=== PATIENT | male | born 1945 | race Caucasian/White ===

== ENCOUNTER → 2018-09-23 07:05 | Outpatient (CLI) | payer MEDICARE, OTHER, SELFPAY ==
--- NOTE | 2018-09-23 07:10 | CT_ITS ---
STUDY: LOW DOSE CT LUNG CANCER SCREENING REASON FOR EXAM: Male, 73 years old. 30 pack-year year history of smoking. The patient quit 10 years ago. RADIATION DOSAGE (If Supplied By Facility): CTDIvol = ( 4.02 ) mGy, DLP = ( 123.35 ) mGycm TECHNIQUE: No contrast was administered. Low dose technique was utilized (average mAS-38 and kVp 120). 1.25 mm axial source images with a slice interval of 1.25-mm were reconstructed in lung windows. 2.5 mm axial source images with a slice interval of 2.5-mm were reconstructed in lung windows. 5.0 mm axial source images with a slice interval of 5.0-mm were reconstructed in soft tissue windows. Nodule measured using lung windows on PACS and/or independent workstation with automated measurement of minimum and maximum diameter. Nodule measurement reported as average diameter rounded to the nearest whole number. Growth is defined as an increase ins size of greater than 1.5 mm. COMPARISON: Comparison is made with prior examination dated March 14, 2011. NODULES: No suspicious nodules seen. Aorta: Calcified plaques of the aortic arch. Coronary arteries: Coronary artery calcification. Heart: Unremarkable. Pulmonary artery: Mediastinal nodes: Small benign-appearing mediastinal lymph nodes. Other chest and abdominal findings: Moderate sized hiatal hernia. CT/Low Dose CT Lung Screening IMPRESSION: Lung-RADS category 2 - Continue annual screening with LDCT in 12 months. IMPORTANT NOTES FOR USE: ACR Lung-RADS Version 1.0 Assessment Categories Release Date: July 14, 2013 Category: Coded 0-4 bases on nodule(s) with highest degree of suspicion. Negative screen is defined as categories 1 and 2; a positive screen is defined as categories 3 and 4. Category 3 and 4A nodules that are unchanged on interval CT should be coded as category 2, and individuals returned to screening in 12 months. Category 4X: Category 3 or 4 nodules with additional imaging findings that increase the suspicion of lung cancer, such as spiculation, GGN that doubles in size in 1 year, enlarged lymph notes, etc. Category Modifiers: S (significant finding unrelated to lung cancer) and C (prior history of treated lung cancer) may be added to the 0-4 Lung-RADS Electronically Signed: Santiago Quan, at 9:38 EDT , Service support ,
== END ==
PROVIDERS: Family Provider Family Medicine; PCP Family Medicine; Referring Provider Internal Medicine Pulmonary Disease; Visit Provider Internal Medicine Pulmonary Disease
DX: Z12.2 Encounter for screening for malignant neoplasm of respiratory organs (principal); Z87.891 Personal history of nicotine dependence
CPT/HCPCS: G0297

== ENCOUNTER → 2019-05-06 06:46 | Outpatient (CLI) | payer MEDICARE, OTHER, SELFPAY ==
[2019-04-17 14:14] VITALS: BMI 32.2
--- NOTE | 2019-05-06 13:03 | STRESSREP_ITS ---
Stress Test Report Date: 05-06-2019 Procedure: Exercise tolerance test/imaging study Indications: Chest pain Consent: Per the patient Procedure: The patient exercised on a Kenji protocol for 6 minutes and 11 seconds completing Stage II and 11 seconds of Stage III achieving a peak heart rate of 125 bpm (85 % predicted maximal heart rate) with a peak blood pressure 192/94 mmHg and a peak MET capacity of 7 METs. The baseline ECG demonstrated normal sinus rhythm. The peak exercise ECG demonstrated no obvious ECG changes. There were no cardiac dysrhythmias pretest, during exercise, or recovery. The functional capacity was considered average. There was no complaint of chest discomfort during exercise or recovery. The examination was discontinued secondary to dyspnea. Impression: 1. Technically adequate (percent predicted maximal heart rate greater than 85%) exercise tolerance test 2. Peak exercise ECG with no obvious ECG changes 3. There were no cardiac dysrhythmias pretest, during exercise, or recovery 4. Nuclear images pending Myocardial perfusion imaging study: Technique: The patient was injected with 14.3 mCi of technetium 99m Cardiolite and subsequently rest SPECT Cardiolite nuclear imaging was obtained in the horizontal long, vertical long, and short axis views. The patient exercised on a Kenji protocol for 6 minutes and 11 seconds completing Stage II and 11 seconds of Stage III achieving a peak heart rate of 125 bpm (85 % predicted maximal heart rate) with a peak blood pressure 192/94 mmHg and a peak MET capacity of 7 METs. The patient was injected with 44.5 mCi of technetium 99m Cardiolite and subsequently stress SPECT Cardiolite nuclear imaging was obtained in the horizontal long, vertical long, and short axis views. A gated Cardiolite study at peak stress was obtained. Interpretation: Rest and stress SPECT Cardiolite nuclear imaging status post realignment, normalization, and attenuation correction, demonstrates the appearance of body motion during image acquisition and otherwise relative uniform tracer uptake. There is end systolic thickening and brightening. The gated Cardiolite study demonstrates myocardial thickening and inward wall motion. The reported LVEF is 79 %. Impression: 1. Rest and stress SPECT Cardiolite nuclear imaging demonstrate the appearance of body motion during image acquisition and otherwise relative uniform tracer uptake with no myocardial perfusion changes considered diagnostic for associated stress-induced myocardial ischemia. 2. The gated Cardiolite study reports an LVEF of 79 %. This note was generated with [employer] software. It may contain incorrect words, spelling, and punctuation that were not noted in checking the note before signing.
== END ==
PROVIDERS: PCP Family Medicine; Referring Provider Internal Medicine Cardiovascular Disease; Visit Provider Internal Medicine Cardiovascular Disease
DX: R07.9 Chest pain, unspecified (principal)
CPT/HCPCS: 78452; 93017; A9500; A4216

== ENCOUNTER → 2019-11-18 15:01 | Outpatient (CLI) | payer MEDICARE, OTHER, SELFPAY ==
[2019-07-22 08:28] VITALS: BMI 34.0
--- NOTE | 2019-11-18 15:04 | CT_ITS ---
STUDY: CT ABDOMEN AND PELVIS WITHOUT CONTRAST REASON FOR EXAM: Male, 74 years old. RT FLANK PAIN. Prior cholecystectomy. HTN and diabetes controlled RADIATION DOSAGE (If Supplied By Facility): CTDIvol = ( 13.49 ) mGy, DLP = ( 700.88 ) mGycm TECHNIQUE: Transaxial images were obtained from the dome of the diaphragm to the symphysis pubis without oral contrast, and without intravenous contrast. Sagittal and coronal images were reconstructed. Individualized dose optimization techniques were used for this CT. COMPARISON: Comparison is made with prior study dated 07/06/2016. FINDINGS: Stable minimal scarring at the lung bases. Coronary artery calcification. Scattered calcified hepatic granulomas. There are surgical clips in the gallbladder fossa consistent with a prior cholecystectomy. Normal spleen. Normal pancreas. Normal bilateral adrenal glands. Tiny nonobstructive calculus in the lower pole calyx of the right kidney. Tiny calculus in the midpole region of the left kidney as well as in the lower pole calyx. Moderate sized hiatal hernia. Normal small intestine. There are multiple colonic diverticula consistent with diverticulosis. The appendix is visualized and appears normal. There is scattered atherosclerotic calcification of the abdominal aorta, without a demonstrated aneurysm. Normal inferior vena cava. There is borderline retroperitoneal lymphadenopathy with enlarged nodes no greater than 10mm in the short axis diameter. Normal urinary bladder. There are prostatic calcifications. There is a small umbilical hernia containing fat. Small left inguinal hernia containing fat. Disc space narrowing in the spondylolysis at the T10-T11 level with minimal loss of height of the T11 vertebrae. CT/Abdomen/Pelvis without Cont IMPRESSION: Tiny nonobstructive bilateral intrarenal calculi. Sigmoid diverticulosis. Moderate-sized hiatal hernia. Electronically Signed: Santiago Quan, at 15:41 EDT , Service support ,
== END ==
PROVIDERS: PCP Family Medicine; Referring Provider Nurse Practitioner Adult Health; Visit Provider Nurse Practitioner Adult Health
DX: N20.0 Calculus of kidney (principal); K57.30 Diverticulosis of large intestine without perforation or abscess without bleeding; K44.9 Diaphragmatic hernia without obstruction or gangrene
CPT/HCPCS: 74176

== ENCOUNTER → 2020-01-05 14:24 | Outpatient (CLI) | payer MEDICARE, OTHER, SELFPAY ==
[2019-07-22 08:28] VITALS: BMI 34.0
--- NOTE | 2020-01-05 14:43 | CT_ITS ---
STUDY: LOW DOSE CT LUNG CANCER SCREENING REASON FOR EXAM: Male, 74 years old. Long history of smoking. Screening for lung cancer. RADIATION DOSAGE (If Supplied By Facility): CTDIvol = ( 2.55 ) mGy, DLP = ( 76.27 ) mGycm TECHNIQUE: No contrast was administered. Low dose technique was utilized (average mAS-38 and kVp 120). 1.25 mm axial source images with a slice interval of 1.25-mm were reconstructed in lung windows. 2.5 mm axial source images with a slice interval of 2.5-mm were reconstructed in lung windows. 5.0 mm axial source images with a slice interval of 5.0-mm were reconstructed in soft tissue windows. Nodule measured using lung windows on PACS and/or independent workstation with automated measurement of minimum and maximum diameter. Nodule measurement reported as average diameter rounded to the nearest whole number. Growth is defined as an increase ins size of greater than 1.5 mm. COMPARISON: 09/23/2018 NODULES: The lungs are clear and expanded. There is no demonstrated pleural abnormality. Normal heart and pericardium. Normal mediastinum. Normal hilar regions. Normal unenhanced pulmonary arteries. Normal aorta arch and descending thoracic aorta. There are multi-level degenerative changes of the thoracic spine. There is a moderate-sized hiatal hernia. CT/Low Dose CT Lung Screening IMPRESSION: Lung-RADS category 2. Benign findings. There is no evidence of malignancy. Recommendation: Routine screening CT scan in one year. IMPORTANT NOTES FOR USE: ACR Lung-RADS Version 1.0 Assessment Categories Release Date: July 14, 2013 Category: Coded 0-4 bases on nodule(s) with highest degree of suspicion. Negative screen is defined as categories 1 and 2; a positive screen is defined as categories 3 and 4. Category 3 and 4A nodules that are unchanged on interval CT should be coded as category 2, and individuals returned to screening in 12 months. Category 4X: Category 3 or 4 nodules with additional imaging findings that increase the suspicion of lung cancer, such as spiculation, GGN that doubles in size in 1 year, enlarged lymph notes, etc. Category Modifiers: S (significant finding unrelated to lung cancer) and C (prior history of treated lung cancer) may be added to the 0-4 Lung-RADS Electronically Signed: Saadia Marrufo, at 6:43 EDT Tel , Service support ,
== END ==
PROVIDERS: PCP Student in an Organized Health Care Education/Training Program; Referring Provider Internal Medicine Pulmonary Disease; Visit Provider Internal Medicine Pulmonary Disease
DX: Z12.2 Encounter for screening for malignant neoplasm of respiratory organs (principal); Z87.891 Personal history of nicotine dependence
CPT/HCPCS: G0297

== ENCOUNTER → 2021-01-04 12:49 | Outpatient (CLI) | payer MEDICARE, OTHER, SELFPAY ==
[2019-07-22 08:28] VITALS: BMI 34.0
--- NOTE | 2021-01-04 13:01 | CT_ITS ---
STUDY: LOW DOSE CT LUNG CANCER SCREENING REASON FOR EXAM: Male, 75 years old. TOBACCO USE. The patient smoked 1 pack per day for 50 years. RADIATION DOSAGE (If Supplied By Facility): CTDIvol = ( 2.39 ) mGy, DLP = ( 90.25 ) mGycm TECHNIQUE: No contrast was administered. Low dose technique was utilized (average mAS-38 and kVp 120). 1.25 mm axial source images with a slice interval of 1.25-mm were reconstructed in lung windows. 2.5 mm axial source images with a slice interval of 2.5-mm were reconstructed in lung windows. 5.0 mm axial source images with a slice interval of 5.0-mm were reconstructed in soft tissue windows. Nodule measured using lung windows on PACS and/or independent workstation with automated measurement of minimum and maximum diameter. Nodule measurement reported as average diameter rounded to the nearest whole number. Growth is defined as an increase ins size of greater than 1.5 mm. COMPARISON: Comparison is made with prior study 01/05/2020. NODULES: No suspicious nodules are seen. Emphysema: Stable mild degree of increased markings in the anterior aspect of the right middle lobe suggestive of a scarring. Stable mild groundglass appearance in the medial aspect of the right middle lobe. Stable mild degree of linear scarring at the lung bases. Endobronchial lesion: None Aorta: Mild atherosclerotic plaque of the aortic arch. Coronary arteries: Coronary artery calcification. Mediastinal nodes: Small benign-appearing mediastinal lymph nodes. Other chest and abdominal findings: Degenerative changes of the thoracic spine. CT/Low Dose CT Lung Screening IMPRESSION: Lung-RADS category 2 - Continue annual screening with LDCT in 12 months. IMPORTANT NOTES FOR USE: ACR Lung-RADS Version 1.1 Assessment Categories Release Date: 2018 Category: Coded 0-4 bases on nodule(s) with highest degree of suspicion. Negative screen is defined as categories 1 and 2; a positive screen is defined as categories 3 and 4. Category 3 and 4A nodules that are unchanged on interval CT should be coded as category 2, and individuals returned to screening in 12 months. Category 4X: Category 3 or 4 nodules with additional imaging findings that increase the suspicion of lung cancer, such as spiculation, GGN that doubles in size in 1 year, enlarged lymph notes, etc. Category Modifiers: S (significant finding unrelated to lung cancer) Electronically Signed: Santiago Quan MD at 13:45 EDT , Service support ,
== END ==
PROVIDERS: PCP Student in an Organized Health Care Education/Training Program; Referring Provider Internal Medicine Pulmonary Disease; Visit Provider Internal Medicine Pulmonary Disease
DX: Z12.2 Encounter for screening for malignant neoplasm of respiratory organs (principal); Z87.891 Personal history of nicotine dependence
CPT/HCPCS: 71271

== ENCOUNTER 2023-09-23 09:37 | Emergency (ER) | payer MEDICARE, SELFPAY ==
[2023-09-23 09:38] VITALS: BP 129/83; PULSE 73; RESP 16; TEMP 36; O2SAT 93; BMI 32.3
[2023-09-23] MEDS: Ampicillin/Sulbactam 3 GM in 0.9% Normal Saline (100mL MB+) 100 ML IV (10:12)
[2023-09-23 10:13] LABS: Absolute Lymphocyte Count 1.24 X10^3/uL (0.83-4.51); Absolute Neutrophil Count 7.3 X10^3/uL (2.0-7.7); Basophil# 0.06 X10^3/uL; Basophil% 0.7 % (0-1); Eosinophil# 0.02 X10^3/uL; Eosinophils% 0.2 % (0-5); Hematocrit 47.1 % (40-54); Hemoglobin 15.6 g/dL (13.0-16.5); Lymphocyte # 1.24 X10^3/ul (0.83-4.51); Lymphocyte % 13.5 % (19-41); Mean Corp Hgb Conc 33.1 g/dL (32-36); Mean Corpuscular Hgb 31.4 pg (27.0-32.0); Mean Corpuscular Volume 94.8 fL (80-94); Monocyte# 0.58 X10^3/uL; Monocyte% 6.3 % (0-10); NRBC Flagged by Analyzer 0 % (0-5); Neutrophil # 7.26 X10^3/uL (2.7-7.7); Platelet Count 169 K/mm3 (150-450); RBC Distribution Width CV 13.5 % (11.6-14.6); RBC Distribution Width SD 47.2 fl (35.1-43.9); Red Blood Count 4.97 M/mm3 (4.6-6.2); White Blood Count 9.2 K/mm3 (4.4-11.0)
[2023-09-23 10:15] VITALS: BP 114/74; BP 124/79; BP 133/67; PULSE 71; PULSE 72; PULSE 74
[2023-09-23 10:29] LABS: ALB/GLOB Ratio 1.2 RATIO (0.9-2.4); AST(SGOT) 16 U/L (15-37); Alanine Aminotransfer ALT/SGPT 21 U/L (16-61); Albumin, Serum 3.7 g/dL (3.2-5.0); Alkaline Phosphatase 77 U/L (45-117); Anion Gap 9 (5-15); BUN 15 mg/dL (7-18); BUN/Creat Ratio 12.7 RATIO (10-20); Calcium,Total 9.2 mg/dL (8.5-10.1); Chloride 107 mmol/L (98-107); Creatinine, Serum 1.18 mg/dL (0.70-1.30); EST Glomerular Filtration Rate 64 mL/min (>60); Est Glom Filt Rate - Afr Amer 77 mL/min (>60); Globulin 3.2 g/dL (2.2-4.2); Glucose 117 mg/dL (74-106); Potassium 4.2 mmol/L (3.5-5.1); Protein, Total 6.9 g/dL (6.4-8.2); Sodium Level 139 mmol/L (136-145)
--- NOTE | 2023-09-23 10:30 | EX.ED.DYSGE1 ---
HPI History of Present Illness Chief Complaint: Dizziness Detail of Chief Complaint: Chills, temperature 100.4 ?F, weakness, orthostatic lightheadedness and mul Informant: patient and spouse/S.O. Onset/Context/Timing Onset: Today and Yesterday Context: Sudden Onset Timing: Intermittent Quality: Infectious symptoms Location: Generalized Current Severity: Mild Maximum Severity: Moderate Worsened by: Suspect due to skin infection. Suspect source right forearm abscess with c Relieved by: Nothing Associated Symptoms Associated Symptoms: Nausea Narrative Narrative: Patient is a 78-year-old male. He is not a good informant. He has a history of hypertension, hypercholesterolemia who was brought to the emergency department because he was unable to get up off the floor. He complains of generalized weakness. He has poor appetite. He had a documented temperature of 100.4 ?F. Shaking chills yesterday. He has multiple lesions on his skin. He does have a history of prediabetes. He denies headache, visual, ocular auditory symptoms. He denies ear pain or ear discharge. He denies change in voice or difficulty swallowing. He denies cough, shortness of breath or difficulty breathing. [place] chest discomfort. He does report nausea without vomiting or diarrhea. He denies dysuria, frequency, urgency or hematuria. Prior similar symptoms: No Recent Illness/Hospitalization: No PFSH PFSH Medical History Kidney stones Premature atrial contraction Chest pain Type 2 diabetes mellitus Premature ventricular contraction Mixed hyperlipidemia Essential hypertension Home Medications ?Medication ?Instructions ?Recorded ?Last Taken ?Type losartan 25 mg tablet 25 mg PO DAILY 04/16/19 09/22/23 History multivitamin 1 tab PO DAILY 04/16/19 09/22/23 History simvastatin 20 mg tablet 20 mg PO QHS 04/16/19 09/22/23 History folic acid 400 mcg tablet 0.4 mg PO BID 04/17/19 09/22/23 History amlodipine 5 mg tablet 5 mg PO DAILY 09/23/23 09/22/23 History cephalexin 500 mg capsule 500 mg PO Q6 #28 CAPSULES 09/23/23 Unknown Rx cholecalciferol (vitamin D3) 50 50 mcg PO BID 09/23/23 09/22/23 History mcg (2,000 unit) tablet (Vitamin D3) cyanocobalamin (vitamin B-12) 500 500 mcg PO BID 09/23/23 09/22/23 History mcg tablet (B-12 DOTS) empagliflozin 25 mg tablet 25 mg PO DAILY 09/23/23 09/22/23 History (Jardiance) memantine ER 28 mg-donepezil 10 mg 1 cap PO QPM 09/23/23 09/22/23 History capsule sprinkle,ext.release 24 hr (Namzaric) metformin 500 mg tablet,extended 1,000 mg PO BID 09/23/23 09/22/23 History release 24 hr Allergy/AdvReac Type Severity Reaction Status Date / Time No Known Allergies Allergy Verified 07/26/20 08:40 Family History Mother CAD (coronary artery disease) Hypertension Cancer Breast Myocardial infarction History of coronary artery bypass surgery Father Myocardial infarction Hypertension Brother Diabetes Hypertension Sister Hypertension Sister Hypertension Surgical History History of hemorrhoidectomy Social History Smoking Status: Former smoker alcohol intake: current details: occasional substance use type: does not use caffeine: Yes Type: carbonated beverages Number of servings: 1 and coffee Number of servings: 1 ROS ROS ED Constitutional Constitutional ED: Reports chills and fever(s); Denies subjective, sweats or weight loss Eyes Eyes: Denies blurry vision, change in vision or diplopia ENT ENT ED: Denies ear pain, rhinorrhea or sore throat Cardiovascular Cardiovascular: Denies chest pain, palpitations or racing heartbeat Respiratory/Chest Respiratory/Chest: Denies cough, dyspnea or dyspnea on exertion Gastrointestinal Gastrointestinal: Reports nausea; Denies abdominal pain, diarrhea or vomiting Genitourinary Genitourinary ED: Denies dysuria, hematuria or urinary frequency Musculoskeletal Musculoskeletal: Denies arthralgias, back pain, myalgias or neck pain Integumentary Reports rash Neurologic Neurologic: Denies headache(s) or paresthesias Psychiatric Psychiatric: Denies anxiety or depression Endocrine Endocrinology: Denies cold intolerance or heat intolerance Hematologic/Lymphatic Hematologic/Lymphatic: Reports systems reviewed and no addt'l complaints, except as documented EXAM Physical Exam Const Vital Signs: 09/23/23 09:38 09/23/23 10:15 Temperature 96.8 F L Temperature Source Temporal Pulse Rate 73 Pulse Rate [Lying] 72 Pulse Rate [Sitting (for 1 minute prior to obtaining)] 71 Pulse Rate [Standing (for 1 minute prior to obtaining)] 74 Respiratory Rate 16 Blood Pressure 129/83 H Blood Pressure [Lying] 133/67 H Blood Pressure [Sitting (for 1 minute prior to obtaining)] 124/79 H Blood Pressure [Standing (for 1 minute prior to obtaining)] 114/74 Blood Pressure Mean 98 Blood Pressure Mean [Lying] 89 Blood Pressure Mean [Sitting (for 1 minute prior to obtaining)] 94 Blood Pressure Mean [Standing (for 1 minute prior to obtaining)] 87 Pulse Ox 93 Oxygen Delivery Method Room Air Positive well nourished and well developed Constitutional Narrative: Initial blood pressure is normal to slightly elevated. Orthostatic vitals were negative. General Appearance ED: well developed, NAD and pallor; Negative for cyanotic or diaphoretic HEENT Reports TM's clear and dry mucous membranes HEENT Narrative: Nares patent. Posterior pharynx is normal. Negative for trauma or tenderness Tympanic Membrane ED: Yes TM's clear Mouth ED: Yes dry mucous membranes Mouth: dry mucous membranes Eyes PERRL and EOMs intact bilaterally General Eye ED: Negative for pale conjunctiva or scleral icterus Neck no lymphadenopathy, supple and no JVD Chest Wall inspection of chest normal and palpation of chest normal Resp normal respiratory effort and clear to auscultation bilaterally Cardio regular rate, regular rhythm, S1 normal heart sound, S2 normal heart sound and no murmurs GI normal to inspection, nondistended, normoactive bowel sounds, non-tender, non-distended and hepatosplenomegaly Back/Spine no CVA tenderness Extremity Negative for normal to inspection Extremity Narrative: Patient has multiple areas where he has picked at his skin. The 1 on the mid left Has slight erythema around it and an eschar. There is an abscess on the volar ulnar proximal left humerus with lymphangitis to the mid to proximal arm on the medial side. He has shotty axillary lymphadenopathy. General Extremety ED: Negative for edema General Extremity: Negative for edema Neuro oriented x3, CN's II-XII intact bilaterally and no sensory deficits noted Sensorium / Orientation: alert Psych mental status grossly normal Skin No no rashes or lesions noted, No no wounds and skin turgor normal General Skin Exam: pallor; Negative for jaundice MDM MDM MDM Narrative Medical decision making narrative: Patient with infectious symptoms. Infectious workup was undertaken. He does have a superficial abscess right forearm that required I&D with lymphangitis. CBC, competence metabolic panel lactate were obtained to assess for white count as well as endorgan dysfunction. Orthostatic vitals were obtained and are negative. This was obtained because of his orthostatic lightheaded complaints. He was started on Unasyn for skin infection per sepsis order set. History & Record Review Additional record(s) reviewed:: Prior outpatient record and Prior labs Lab Data Attestation: I reviewed the patient's lab results. Lab results narrative: White count is normal. H&H is normal. Differential reveals slight shift. Basic metabolic panel is unremarkable. Glucose is 117 with normal CO2 anion gap. Total bili slightly 1.5. Labs: Laboratory Results - last 24 hr 09/23/23 10:05 WBC 9.2 RBC 4.97 Hgb 15.6 Hct 47.1 MCV 94.8 H MCH 31.4 MCHC 33.1 RDW Std Deviation 47.2 H RDW Coeff of Viki 13.5 Plt Count 169 MPV 9.0 Immature Gran % (Auto) 0.300 Neut % (Auto) 79.0 H Lymph % (Auto) 13.5 L [place] % (Auto) 6.3 Eos % (Auto) 0.2 Baso % (Auto) 0.7 Absolute Neuts (auto) 7.3 Absolute Lymphs (auto) 1.24 Nucleated RBC % 0 Sodium 139 Potassium 4.2 Chloride 107 Carbon Dioxide 23.0 Anion Gap 9 BUN 15 Creatinine 1.18 Estim Creat Clear Calc 59.00 Est GFR (MDRD) Af Amer 77 Est GFR (MDRD) Non-Af 64 BUN/Creatinine Ratio 12.7 Glucose 117 H Lactic Acid 1.3 Calcium 9.2 Total Bilirubin 1.50 H AST 16 ALT 21 Alkaline Phosphatase 77 Total Protein 6.9 Albumin 3.7 Globulin 3.2 Albumin/Globulin Ratio 1.2 Treatment and Re-Evaluation :: Since patient's workup is unremarkable he is not orthostatic he is able to stand will discharge to home on antibiotics. Suspect this to be strep in light of the acute onset and lymphangitis. He was treated with cephalexin since he has no allergies to penicillin or cephalosporins. Procedures Other Procedures Procedure(s): Patient was consented at 1035 for I&D of abscess right forearm. Patient was playing with benefits of I&D. He he did give consent. Patient was prepped draped sterile manner. The area was anesthetized by local infiltration as well as field block. Patient complains of significant discomfort. He states he is just anxious. An incision was made using a 10 blade. Incision length is 1 cm. There was scant amount apparent material. There was a small pocket noted on blunt dissection. Cavity was irrigated. The surrounding erythema improved markedly. Discharge Plan Triage Chief Complaint: Dizziness Other Complaint: Wound ED Provider: Cj Palomo Dx/Rx/DC Orders Clinical Impression: Abscess of forearm, right, Essential hypertension, Type 2 diabetes mellitus, Lymphangitis of upper extremity, Dermatillomania in adult Instructions: ED Abscess Incision And Drainage, ED Lymphangitis Prescriptions: New cephalexin 500 mg capsule 500 mg PO Q6 Qty: 28 0RF No Action folic acid 400 mcg tablet 0.4 mg PO BID multivitamin Tablet 1 tab PO DAILY losartan 25 mg tablet 25 mg PO DAILY simvastatin 20 mg tablet 20 mg PO QHS amlodipine 5 mg tablet 5 mg PO DAILY metformin 500 mg tablet extended release 24 hr 1,000 mg PO BID cholecalciferol (vitamin D3) [Vitamin D3] 50 mcg (2,000 unit) tablet 50 mcg PO BID cyanocobalamin (vitamin B-12) [B-12 DOTS] 500 mcg tablet 500 mcg PO BID Jardiance 25 mg tablet 25 mg PO DAILY Namzaric 28-10 mg capsule,sprinkle,ER 24hr 1 cap PO QPM Primary Care Provider: Care Physician,No Primary Referrals: Care Physician,No Primary [Primary Care Provider] - Doctor,Your [Non-Staff] - 2 Days for wound check Activity Restrictions/Additional Instructions: 1. Take antibiotics until gone 2. If your wound worsens and unable to see your doctor return to the emergency department otherwise follow-up with your doctor Print Language: Italian Disposition Disposition: Home, Self Care
[2023-09-23 10:37] LABS: Lactic Acid 1.3 mmol/L (0.4-1.9)
[2023-09-23 10:58] VITALS: BP 114/75; PULSE 87; RESP 18; TEMP 36.6; O2SAT 100
--- NOTE | 2023-09-23 11:00 | ED.RN ---
PER DR. GOINS, ORTHO VITALS ARE NOT NECESSARY AT THIS TIME. AMBULATE PATIENT. MAKE SURE HE IS STEADY AND DOES NOT REPORT DIZZINESS.
== END 2023-09-23 11:01 | disposition home or self-care (01) ==
PROVIDERS: Emergency Provider Emergency Medicine; Visit Provider Emergency Medicine
DX: R42 Dizziness and giddiness (principal); E11.9 Type 2 diabetes mellitus without complications; L02.413 Cutaneous abscess of right upper limb; F42.4 Excoriation (skin-picking) disorder; Z87.891 Personal history of nicotine dependence; E78.2 Mixed hyperlipidemia; I10 Essential (primary) hypertension; Z79.899 Other long term (current) drug therapy; Z79.84 Long term (current) use of oral hypoglycemic drugs
CPT/HCPCS: 10060; 80053; 83605; 85025; 87070; 87077; 87205; 96365; 99285; A4216; J0295